=== PATIENT | female | born 2000 | race Caucasian/White ===

== ENCOUNTER 2025-05-18 18:02 | Emergency (ER) | payer BC, OTHER ==
[~2025-05-18] VITALS: Ht 165.1 cm; Wt 80.7 kg
[2025-05-18 20:23] VITALS: BP 117/70; TEMP 98.4; O2SAT 98
[2025-05-18] MEDS ORDERED: TDAP [DIPH/PERTUSSIS/TET] 0.5 ML VIAL IM ONE (20:45)
[2025-05-18] MEDS: TDAP [DIPH/PERTUSSIS/TET] 0.5 ML VIAL IM ONE (20:46)
== END 2025-05-18 20:58 | disposition home or self-care (01) ==
LOC: ER 18:09
DX: S01.01XA Laceration without foreign body of scalp, initial encounter (principal); S83.511A Sprain of anterior cruciate ligament of right knee, initial encounter; G44.309 Post-traumatic headache, unspecified, not intractable; W22.8XXA Striking against or struck by other objects, initial encounter; Y93.89 Activity, other specified; Y92.89 Other specified places as the place of occurrence of the external cause; Y99.9 Unspecified external cause status
CPT/HCPCS: 90715